=== PATIENT | male | born 1965 | race African-American/Black ===

== ENCOUNTER 2016-12-26 05:58 | Emergency (ER) | payer OTHER ==
[~2016-12-26] VITALS: Ht 180.3 cm; Wt 76.2 kg
[~2016-12-26 05:58] MED LIST: ACCUNEB 3 ML3 M1 INH; ALBUTEROL SULFAT3 M1 NEB; ALBUTEROL0.09 MG/A1 INH; ALBUTEROL0.09 MG/A2 INH; AZITHROMYCIN500 MG PO; BENZONATATE200 M1 PO; DUONEB 3 MG/3 ML3 ML INH/SOL; MEDROL4 M2 PO; PREDNISONE 20MG20 MG PO; PREDNISONE10 MG PO; SINGULAIR10 MG PO; SYMBICORT 160/41 PUF INH; VENTOLIN HFA18 GM INH; ZITHROMAX Z-PA250 M1 PO; ZYRTEC10 M3 PO
[2016-12-26 06:07] VITALS: BP 146/81
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
[2016-12-26] MEDS ORDERED: SYMBICORT 16010.2 GM INH (06:24)
[2016-12-26] MEDS ORDERED: VENTOLIN HFA18 GM INH (06:24)
[2016-12-26] MEDS ORDERED: PREDNISONE50 M1 PO (06:24)
[2016-12-26] MEDS ORDERED: ALBUTEROL1.25 MG/1 INH/SOL (06:25)
== END 2016-12-26 06:46 ==
LOC: ERH 05:58
DX: J45.901 Unspecified asthma with (acute) exacerbation (principal); Z72.0 Tobacco use
CPT/HCPCS: 1263

== ENCOUNTER 2017-11-05 15:44 | Emergency (ER) | payer OTHER ==
[~2017-11-05] VITALS: Ht 182.9 cm; Wt 90.7 kg
[~2017-11-05 15:44] MED LIST changes: +ALBUTEROL1.25 MG/1 INH/SOL; +ALBUTEROL2.5 MG/3 M INH/SOL; +CHERATUSSIN AC118 M1 PO; +PREDNISONE50 M1 PO; +PROAIR HFA8.5 GM INH; +SYMBICORT 16010.2 GM INH; +ZITHROMAX250 M2 PO
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
[2017-11-05 17:19] LABS: ABSOLUTE BASOPHIL COUNT 0 /CUMM (0.0-0.2); ABSOLUTE EOSINOPHIL COUNT 0.4 /CUMM (0.0-0.7); ABSOLUTE GRANULOCYTE CT 2.2 /CUMM (1.4-6.5); ABSOLUTE LYMPH COUNT 1.9 /CUMM (1.2-3.4); ABSOLUTE MONOCYTE COUNT 0.3 /CUMM (0.10-0.60); BASOPHIL % 0.5 % (0.0-2.0); EOSINOPHIL % 7.4 % (0-5); GRANULOCYTE % 46.5 % (42.2-75.2); MEAN CORPUSCULAR HGB 30.1 PG (27.0-31.0); MEAN CORPUSCULAR HGB CONC 33.2 G/DL (33.0-37.0); MEAN CORPUSCULAR VOLUME 90.5 FL (80.0-94.0); PLATELET COUNT 244 /CUMM (130-400); RBC DISTRIBUTION WIDTH 14.9 % (11.5-14.5); RED BLOOD CELL CT 3.98 /CUMM (4.70-6.10); WHITE BLOOD CELL COUNT 4.8 /CUMM (4.8-10.8)
[2017-11-05 17:29] LABS: PT 10.9 SEC (9.4-12.5); PTT 27 SEC (25-37)
[2017-11-05] MEDS ORDERED: ALL DAY ALLERGY10 MG PO (17:32)
[2017-11-05 18:52] VITALS: BP 122/84
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
== END 2017-11-05 18:53 ==
LOC: ERH 15:44
PROVIDERS: Physician Assistant Medical
DX: S61.411A Laceration without foreign body of right hand, initial encounter (principal); W29.0XXA Contact with powered kitchen appliance, initial encounter; Y92.009 Unspecified place in unspecified non-institutional (private) residence as the place of occurrence of the external cause; Y93.9 Activity, unspecified
CPT/HCPCS: 90471; 90714

== ENCOUNTER 2018-04-10 10:26 | Emergency (ER) | payer OTHER ==
[~2018-04-10] VITALS: Ht 180.3 cm; Wt 90.7 kg
[~2018-04-10 10:26] MED LIST changes: +ALL DAY ALLERGY10 MG PO; +AMOXICILLIN500 M3 PO; +PREDNISONE20 M1 PO
[2018-04-10 10:28] VITALS: BP 160/73
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
[2018-04-10] MEDS ORDERED: FLONASE ALLERG9.9 ML NAS (10:49)
[2018-04-10] MEDS ORDERED: TESSALON PERLE100 M1 PO (10:49)
[2018-04-10] MEDS ORDERED: MEDROL4 M2 PO (10:49)
[2018-04-10] MEDS ORDERED: CLARINEX5 M1 PO (10:49)
== END 2018-04-10 11:03 ==
LOC: ERH 10:26
DX: J30.2 Other seasonal allergic rhinitis (principal); F17.200 Nicotine dependence, unspecified, uncomplicated